=== PATIENT | male | born 1970 | race Caucasian/White ===

== ENCOUNTER 2016-07-19 09:33 | Day surgery (SDC) | payer OTHER ==
[~2016-07-19] VITALS: Ht 177.8 cm; Wt 85.0 kg
[~2016-07-19 09:33] MED LIST: DIAZ5TAB3 PO; LAMO25TA PO; Lactated Ringer's 1,000 ML IV ONE; PROP80CA2 PO
[2016-07-19] MEDS ORDERED: Propofol 10,000 mCg/mL 20 mL Inj ONE (09:34)
[2016-07-19] MEDS ORDERED: fentaNYL-PF 50 mCg/mL 2 mL Inj ONE (09:34)
[2016-07-19] MEDS ORDERED: CITA10TA14 PO (10:01)
[2016-07-19] MEDS ORDERED: MIRT30TA PO (10:01)
[2016-07-19] MEDS ORDERED: PRAZ1CAP PO (10:01)
[2016-07-19 10:02] VITALS: BP 134/89; PULSE 62; RESP 16; O2SAT 97
[2016-07-19] MEDS ORDERED: Lactated Ringer's 1,000 ML IV SCH (10:09)
--- NOTE | 2016-07-19 10:09 | PCM.HPANE ---
Patient Data Date of Service: Jul 19, 2016 (1010) Surgeon Admitting Provider: Attending Provider:Mat Salvador MD Primary Care Physician:Audie Resendiz Other Provider:[facility] Anest[facility] Reason for Visit Diarrhea, Gerd Ht/WT & BMI Height (Feet): 5 Height (Inches): 10 Weight (Kilograms): 85.0 Body Mass Index 26.00 Allergies Coded Allergies: No Known Allergies (Unverified , 07/18/16) Past Anesthesia History Anesthesia History: Positive for:: Anesthesia Reactions (HX OF PANIC ATTACKS), Denies:: Fam Anesthesia Reaction, Fam Malignant Hypertherm, Malignant Hyperthermia Diabetes History Hx Diabetes?: No MRSA MRSA: No Medications Reported Medications Citalopram Hydrobromide (Celexa)10 Mg [id number] Mg PO DAILY Ref 0 07/19/16 Prazosin (Minipress)1 Mg Capsule1 Mg PO HS 07/19/16 Mirtazapine (Remeron)30 Mg Taahjl98 Mg PO HS Ref 0 07/19/16 Diazepam 5 Mg Tablet5 Mg PO BID PRN For Anxiety Ref 0 07/18/16 Discontinued Reported Medications Propranolol ER 80 Mg Cap.sa.24h80 Mg PO BID 07/18/16 Lamotrigine 25 Mg Fgdmdd32 Mg PO BID Ref 0 07/18/16 History History of ENT Problems?: No Hx of Heart Problems?: No Cardiovascular History: Denies:: AICD Pacemaker Valvular Heart Disease Hx of Respiratory Problem?: No Hx Neurologic Problems?: No Neurological History: Denies:: CVA Hx of GI Problems?: Yes Gastrointestinal History: Positive for:: Diverticulitis Gastroesphageal Reflux Hx of Problems?: No Hx Musculoskeletal Problems?: No Psycho Social History: Positive for:: Anxiety (PTDS, PANIC DISORDER) Hx Depression Hx Surgeries?: Yes (LIPOMAS REMOVED) Hx Diabetes: No Hx Alcohol Use: No Stop/Bang Treated for Sleep Apnea?: No Do You Have a CPAP Machine?: No S-Snoring: Do You Snore Loudly: No T-Tired: feel tired, fatigued: No O-Obsered: Observed not breath: No P-Blood Pressure: treated: No B- Body Mass Index > 35 kg/m2: No A- Age over 50: No N- Neck Large Circumference: No G- Gender Male: Yes IBRAHIMA Total Score: 1 IBRAHIMA Risk Assessment: Low Risk, <3 Yes Risk Assessment Category Category 1A: Patient has history of documented sleep apnea, and HAS NOT received any narcotic, sedative or anesthesia administration during this stay. Category 1B: Patient has history of documented sleep apnea, and HAS received any narcotic , sedative or anesthesia administration during this stay Category 2: Patient has SUSPECTED Obstructive Sleep Apnea, and HAS received any narcotic , sedative or anesthesia administration during this stay. Category 3: Patient has SUSPECTED Obstructive Sleep Apnea and HAS NOT received narcotic, sedative or anesthesia administration during this stay. Category 4: Outpatient in Procedural Areas with known sleep apnea or who screen positive for High Risk via the STOP/BANG questionnaire. Exam Exam General Appearance: Alert, Oriented X3 HEENT/AIRWAY: MP 1 Lungs: Clear to Auscultation Heart: Exam Unremarkable Plan Impression Patient chart reviewed, patient interviewed and anesthestic plan with risks, benefits, and alternatives discussed, and informed consent obtained. NPO Status: >8HRS ASA Physical Status: ASA2 Mod Systemic Disease Anesthetic Plan: GA Bene/Risks/Altern/Consents: Yes HP Complete Prior to Induction: Yes Earl Ruiz MD Jul 19, 2016 10:09
[2016-07-19] MEDS ORDERED: Ondansetron 2 mg/mL 2 mL Inj IVPUSH PRN (10:10)
[2016-07-19] MEDS ORDERED: MetoCLOpramide 5 mg/mL 2 mL Inj IVPUSH PRN (10:10)
[2016-07-19 10:44] VITALS: BP 94/68; PULSE 55; RESP 8; O2SAT 98
--- NOTE | 2016-07-19 10:46 | PCM.ANEP1 ---
Post Anesthesia Phase 1 PACU Phase 1 Assessment Date of Service: Jul 19, 2016 (1010) Vital Signs 90/66, 53, 98%, 10 Vital Signs Date Time Temp Pulse Resp B/P Pulse Ox O2 Delivery O2 Flow Rate FiO2 07/19/16 10:02 36.8 62 16 134/89 97 Room Air Anesthetic Administered: GA Level of Alertness: Sleepy, easy to arouse IBARRA's with Equal Strength: Yes Pain: No Nausea or Vomiting: No Oxygen Delivery: Room Air Lungs: Clear to Auscultation Dermatome Level: Full Sensation Summary uneventful sedation Earl Ruiz MD Jul 19, 2016 10:46
--- NOTE | 2016-07-19 10:46 | PCM.ANEP2 ---
Post Anesthesia Evaluation ASA/CMS Post Anesthesia VS in Patient's Normal Range?: Yes Resp Stable; Airway Patent?: Yes CV Function & Hydration Stable: Yes Mental Status Recovered?: Yes Pain control Satisfactory?: Yes N/V Control Satisfactory?: Yes Earl Ruiz MD Jul 19, 2016 10:46
[2016-07-19 10:49] VITALS: BP 103/69; PULSE 60; RESP 10; O2SAT 97
[2016-07-19 10:56] VITALS: BP 115/82; PULSE 61; RESP 12; O2SAT 100
--- NOTE | 2016-07-19 11:38 | ENDO ---
[address] [address] ENDOSCOPY PROCEDURE PATIENT: YOLY RAMIRES : 1970 MR#: [id number] ADMIT: 07/19/2016 JOB ID: [id number] DATE OF SERVICE: 07/19/2016 FIRST PROCEDURE PERFORMED: Esophagogastroduodenoscopy. INDICATION: Gastroesophageal reflux. ASA CLASSIFICATION, MALLAMPATI SCORE AND MEDICATIONS: Please see anesthesia report for details regarding ASA classification, Mallampati score and medications. INSTRUMENT USED: [id number]. PROCEDURE DETAILS: After informed consent was obtained, the patient was brought into the GI suite, where he was placed on oxygen via nasal cannula and monitored with continuous pulse oximeter, telemetry, and blood pressure monitoring. A time-out was performed. Then, he was placed in the left lateral decubitus position, and medications were administered for sedation. A bite block was placed. The standard EGD scope was inserted through the bite block and advanced under direct visualization to the second portion of the duodenum without difficulty. FINDINGS: 1. Normal appearing duodenal bulb, first and second portions. Multiple random biopsies were obtained, as the patient also had complaints of diarrhea. 2. Normal appearing pylorus, antrum and gastric body. Multiple random biopsies were obtained. 3. Retroflexed views in the gastric body revealed normal appearing cardia and fundus. 4. The GE junction was irregular at 40 cm. Just above the GE junction the mucosa had a hyperemic appearance with a palisade of vessels suggestive of mild esophagitis. 5. Remainder of the esophagus otherwise unremarkable. IMPRESSION: 1. Mild esophagitis. 2. Otherwise normal exam to second portion of the duodenum. RECOMMENDATIONS: 1. Continue PPI. 2. Await biopsy results. 3. Proceed to colonoscopy. COMPLICATIONS: None. ESTIMATED BLOOD LOSS: Less than 5 mL. SECOND PROCEDURE PERFORMED: Colonoscopy. INDICATION: Chronic diarrhea. ASA CLASSIFICATION, MALLAMPATI SCORE AND MEDICATIONS: Please see above for ASA classification, Mallampati score, and medications. INSTRUMENT USED: [id number]. PREPARATION QUALITY: Good. PROCEDURE DETAILS: After completion of the EGD exam, a digital rectal exam with palpation of the prostate was performed, which was unremarkable. The colonoscope was then inserted into the rectum and advanced under direct visualization to the terminal ileum, which was identified by the presence of the ileocecal valve and villous appearing mucosa of the terminal ileum. Once the terminal ileum was reached, the colonoscope was then withdrawn back into the rectum as the mucosa and lumen were examined. In the rectum, retroflexion was performed. Following retroflexion, remaining air in the rectum was suctioned, and procedure was completed. FINDINGS: 1. Scattered diverticula were seen extending from the mid transverse colon to the sigmoid colon. 2. The mucosa otherwise appeared normal from rectum to terminal ileum. Multiple random biopsies were obtained throughout the colon and terminal ileum. IMPRESSION: 1. Left-sided diverticulosis. 2. Otherwise normal exam. RECOMMENDATIONS: 1. Await biopsy results. 2. Follow up in GI clinic. COMPLICATIONS: None. ESTIMATED BLOOD LOSS: Less than 5 mL.
--- NOTE | 2016-07-20 13:57 | PATH ---
SURGICAL PATHOLOGY Attending Physician:Alfonzo Reyes CASE STATUS: Signed Out PATIENT NAME: YOLY RAMIRES PID: [id number] : 1970 DATE COLLECTED:07/19/2016 18:12 SPECIMEN: 1: Duodenum, Biopsy 2: Gastric, Biopsy 3: Colon, Biopsy 4: Ileum, Biopsy CLINICAL HISTORY: GERD, DIARRHEA 1). DUODENUM BIOPSY 2). GASTRIC BIOPSY 3). RANDOM COLON BIOPSY 4). TERMINAL ILEUM BIOPSY FINAL DIAGNOSIS: 1.DUODENUM BIOPSY: NO DIAGNOSTIC ABNORMALITY. Negative for intraepithelial lymphocytosis, villous blunting, or other features of celiac sprue. Negative for Giardia organisms, dysplasia and malignancy. 2.GASTRIC BIOPSY: NORMAL GASTRIC CORPUS AND ANTRUM. Negative for Helicobacter organisms. Negative for intestinal metaplasia. No evidence of dysplasia or malignancy. 3.RANDOM COLON BIOPSIES: NORMAL COLONIC MUCOSA. No significant inflammation identified. No evidence of dysplasia or malignancy. 4.TERMINAL ILEUM, BIOPSY: NORMAL SMALL BOWEL MUCOSA. No significant inflammation identified. No evidence of dysplasia or malignancy. ICD10 code R19.7 GROSS DESCRIPTION: The specimen is received in two formalin filled containers labeled with the patient's name. 1). The specimen is sublabeled "duodenum" and consists of 4 portions of tissue which aggregate to 0.5 x 0.3 x 0.2 CM. The specimen is entirely submitted in cassette 1A. 2). The specimen is sublabeled "gastric" and consists of 3 portions of tissue which aggregate to 0.3 x 0.3 x 0.2 CM. The specimen is entirely submitted in cassette 2A. 3). The specimen is sublabeled "random colon" and consists of multiple portions of tissue which aggregate to 0.4 x 0.4 x 0.3 CM. The specimen is entirely submitted in cassette 3A. 4). The specimen is sublabeled " TI " and consists of 2 portions of tissue which aggregate to 0.4 x 0.4 x 0.2 CM. The specimen is entirely submitted in cassette 4A. 07/19/2016 [facility] MICRO DESCRIPTION: See diagnosis. ICD-9 CODES: CPT CODES: 1: 81911 2: 84100 3: 03636 4: 83799 Electronically Signed Out Musa Rosas MD [facility] Pathology [facility] [address], [place] [address] Technical component performed at [facility], [address], [place], [address]
== END 2016-07-19 23:59 | disposition home or self-care (01) ==
LOC: END 09:33
PROVIDERS: ATTEND Internal Medicine Gastroenterology
DX: R19.7 Diarrhea, unspecified (principal); K21.9 Gastro-esophageal reflux disease without esophagitis; K20.9 Esophagitis, unspecified; K57.30 Diverticulosis of large intestine without perforation or abscess without bleeding; F43.10 Post-traumatic stress disorder, unspecified; F41.9 Anxiety disorder, unspecified
CPT/HCPCS: 43239; 45380; 87507; 88305; J2250; J3010; J7120